=== PATIENT | male | born 1955 | race Caucasian/White ===

== ENCOUNTER 2020-12-13 09:08 | Emergency (ER) | payer OTHER ==
[2020-12-13 09:48] LABS: BASOPHIL 0.2 % (0-2); EOSINOPHIL 0.3 % (0-7); HCT 47.8 % (42.0-52.0); HGB 16.5 g/dl (13.2-18.0); LYMPHOCYTE 10.2 % (15-48); MCH 31.7 pg (25.0-31.0); MCHC 34.5 g/dL (32.0-36.0); MCV 91.9 fL (78.0-100.0); MONOCYTE 7.5 % (0-12); MPV 11.2 fL (6.0-9.5); NEUTROPHIL 81.3 % (41-80); NRBC 0; PLT 193 K/uL (150-400); RDW 12.6 % (11.5-14.0); WBC 16.4 K/uL (4.0-10.5)
[2020-12-13 09:49] LABS: BILIRUBIN NEGATIVE (NEGATIVE); BLOOD TRACE-INTACT Ery/uL (NEGATIVE); CLARITY CLEAR (CLEAR); COLOR YELLOW (YELLOW); GLUCOSE (U) NORMAL (NORMAL); LEUKOCYTES NEGATIVE Leu/uL (NEGATIVE); NITRITE NEGATIVE (NEGATIVE); PROTEIN NEGATIVE (NEGATIVE); SPECIFIC GRAVITY >=1.030 (1.001-1.030); UROBILINOGEN 0.2 mg/dL (0.2-1.0)
[2020-12-13 09:59] LABS: BUN/CREAT RATIO (CALC) 25.9 RATIO; CREATININE 0.81 mg/dL (0.67-1.17); POTASSIUM 3.4 mmol/L (3.5-5.1)
[2020-12-13 10:27] LABS: URINARY RBC RARE
[2020-12-13 11:02] LABS: ALBUMIN 3.5 g/dL (3.4-5.0); BILIRUBIN - DIRECT 0.2 mg/dL (0.00-0.20); BILIRUBIN - TOTAL 0.5 mg/dL (0.2-1.0); GLOBULIN (CALCULATION) 4.4 g/dL; TOTAL PROTEIN 7.9 g/dL (6.4-8.2)
[2020-12-13] MEDS ORDERED: ONDANSETRON ODT4 MG PO (11:26)
[2020-12-13] MEDS ORDERED: BENTYL10 MG PO (11:26)
== END 2020-12-13 11:38 | disposition home or self-care (01) ==
LOC: FER 09:08
PROVIDERS: Emergency Medicine
DX: K81.0 Acute cholecystitis (principal); I10 Essential (primary) hypertension; Z79.899 Other long term (current) drug therapy
CPT/HCPCS: 36415; 80048; 80076; 81001; 83690; 85025

== ENCOUNTER → 2020-12-30 | Day surgery (SDC) | payer OTHER ==
[~2020-12-30] VITALS: Ht 172.7 cm; Wt 86.0 kg
[~2020-12-30] MED LIST: AMOXICILLIN500 MG PO; BENTYL10 MG PO; LISINOPRIL10 MG PO; NORCO 5-325 TA1 EACH PO; ONDANSETRON ODT4 MG PO; ONDANSETRON ODT8 MG PO
[2020-12-30 07:31] LABS: HCT 47.5 % (42.0-52.0); HGB 16.2 g/dl (13.2-18.0); MCH 31.2 pg (25.0-31.0); MCHC 34.1 g/dL (32.0-36.0); MCV 91.3 fL (78.0-100.0); MPV 10.6 fL (6.0-9.5); RBC 5.2 M/uL (4.70-6.00); RDW 12.4 % (11.5-14.0); WBC 5.1 K/uL (4.0-10.5)
[2020-12-30 07:53] LABS: ALBUMIN 3.5 g/dL (3.4-5.0); BILIRUBIN - TOTAL 0.6 mg/dL (0.2-1.0); BUN/CREAT RATIO (CALC) 20.9 RATIO; CREATININE 0.86 mg/dL (0.67-1.17); GLOBULIN (CALCULATION) 4.2 g/dL; POTASSIUM 3.9 mmol/L (3.5-5.1); TOTAL PROTEIN 7.7 g/dL (6.4-8.2)
== END | disposition home or self-care (01) ==
LOC: FAS 06:57
PROVIDERS: Surgery
DX: K80.12 Calculus of gallbladder with acute and chronic cholecystitis without obstruction (principal); K66.0 Peritoneal adhesions (postprocedural) (postinfection); I10 Essential (primary) hypertension; G47.30 Sleep apnea, unspecified
CPT/HCPCS: 36415; 80053; 87070; 87077; 87205; C1758; J0713; J1100; J2250; J2405; J2704; J3010; J7120; Q9967